=== PATIENT | male | born 1970 | race Caucasian/White ===

== ENCOUNTER 2019-01-24 18:54 | Emergency (ER) | payer OTHER, MEDICAID, SELFPAY ==
--- NOTE | 2019-01-24 19:00 | ED.GENADULT ---
HPI - General Adult General Chief complaint: GI Bleed Stated complaint: VOMITING BLOOD FEELS DISORIENTED Time Seen by Provider: 01/24/19 19:00 Source: patient Mode of arrival: ambulatory Limitations: no limitations History of Present Illness HPI narrative: Patient is a 48-year-old male here for evaluation 2 days of nausea and vomiting and vomiting up blood. He states that he has had ?stomach? issues in the past. He stated that he has been diagnosed with H pylori in the past but has been treated for this. He states that in the past he has had episodes where his stomach starts to hurt and then he vomits several times occasionally with some blood but that seems to resolve his symptoms. States this time it has been going on for the past 2 days which is longer than what has been in the past. He states that it started with bright red blood streaking his vomitus. States that his then since turned into a darker color. No chest pain or shortness of breath. He states he has seen a GI provider in the past but not recently. Not on blood thinners. Denies alcohol use. No change in his stool. He states that during this times his body ?does not process the water that he drinks Related Data Previous Rx's Medication Instructions Recorded esomeprazole magnesium [Nexium 20 mg PO DAILY #30 cap 01/24/19 24HR] Allergies Allergy/AdvReac Type Severity Reaction Status Date / Time NSAIDS (Non-Steroidal AdvReac Verified 01/24/19 19:09 Anti-Inflamma Review of Systems Constitutional Denies fever(s) ENT Ears, Nose, Mouth, and Throat: Reports sore throat Cardiovascular Denies chest pain and Denies dyspnea Respiratory Denies dyspnea Gastrointestinal Gastrointestinal: Reports abdominal pain, Denies melena, Denies hematochezia, Reports coffee ground emesis, Reports nausea and Reports vomiting Genitourinary Denies dysuria Musculoskeletal Denies myalgias and Denies arthralgias Integumentary/Breasts Denies rash Hematologic/Lymphatic Denies easy bleeding and Denies easy bruising Allergic/Immunologic Denies urticaria [facility] Medical History H. pylori infection (Acute) Social History Smoking Status: Never smoker Social History (Reviewed 07/09/19 @ 01:36 by MOI Aparicio Smoking Status: Never smoker Exam Initial Vital Signs Initial Vital Signs: Vital Signs Temperature 98.5 F 01/24/19 19:10 Pulse Rate 104 H 01/24/19 19:10 Respiratory Rate 20 01/24/19 19:10 Blood Pressure 119/91 H 01/24/19 19:10 Pulse Oximetry 98 01/24/19 19:10 Const General: cooperative, comfortable, well developed, well groomed and No acute distress Nutritional Appearance: cachectic Orientation: alert, awake and oriented x3 HENMT Head: normal to inspection and normocephalic Chest Chest: normal inspection of the chest Resp Effort & Inspection: normal respiratory effort Auscultation: clear to auscultation bilaterally Cardio Rate: tachycardic Rhythm: regular rhythm Pulses: radial pulses present GI Inspection: non-distended Palpation: soft, No firm and No tender Skin Lesions: no lesions Rashes: no rashes Neuro General: alert and awake Cognition: normal cognition Speech: speech normal Gait: normal gait Motor: muscle tone normal throughout Extrem General: normal to inspection and capillary refill normal Psych Appearance: grossly normal and well kempt Course Orders Ordered: ED Orders 01/24/19 19:06 XR chest 1V Stat 01/24/19 19:15 Basic Metabolic Panel Stat Complete Blood Count AUTO DIFF Stat Partial Thromboplastin Time Stat Prothrombin Time INR Stat Discontinued Medications Sodium Chloride (Normal Saline 0.9%) 1,000 mls @ 1,000 mls/hr IV BOLUS ONE Stop: 01/24/19 20:05 Last Infusion: 01/24/19 20:37 Dose: 0 mls/hr Admin: 01/24/19 19:30 Dose: 1,000 mls/hr Pantoprazole Sodium (Protonix) 40 mg IV NOW ONE Stop: 01/24/19 19:07 Last Admin: 01/24/19 19:30 Dose: 40 mg Vital Signs - 8 hr 01/24/19 19:10 01/24/19 19:30 01/24/19 20:33 Temperature 98.5 F Pulse Rate 104 H 73 71 Respiratory Rate 20 18 18 Blood Pressure 119/91 H Blood Pressure [Left Arm] 110/74 121/83 Pulse Oximetry 98 97 96 Medical Decision Making Lab Data Lab results reviewed: Yes I reviewed the patient's lab results. Result diagrams: 01/24/19 19:15 01/24/19 19:15 Lab Results 01/24/19 01/24/19 01/24/19 Range/Units 19:15 19:15 19:15 WBC 7.3 (4.5-11.0) X10^3/uL RBC 4.30 L (4.5-5.9) X10^6/uL Hgb 13.8 (13.5-17.5) g/dL Hct 40.3 L (41-53) % MCV 93.7 (80-100) fL MCH 32.1 (26-34) PG MCHC 34.3 (30-36) % RDW 13.0 (11.6-14.8) % Plt Count 172 (150-400) X10^3/uL Neut % (Auto) 65.5 (50-75) % Lymph % (Auto) 22.6 L (25-40) % Gonzales % (Auto) 9.6 (3-14) % Eos % (Auto) 1.7 L (2-4) % Baso % (Auto) 0.6 (0-2) % Neut # (Auto) 4800 (2249-6536) /uL Lymph # (Auto) 1600 (1330-9515) /uL Gonzales # (Auto) 700 (0-900) /uL Eos # (Auto) 100 (0-450) /uL Baso # (Auto) 0 (0-100) /uL PT 11.4 (10.1-12.7) SECONDS INR 1.0 (0.9-1.3) APTT 30 (26.4-36.2) SECONDS Sodium 136 L (137-145) mmol/L Potassium 3.7 (3.4-5.1) mmol/L Chloride 93 L (98-107) mmol/L Carbon Dioxide 31 (22-32) mmol/L BUN 29 H (9-20) mg/dL Creatinine 1.00 (0.66-1.25) mg/dL Estimated GFR > 60.0 (>60) mL/min BUN/Creatinine Ratio 29.0 H (6-22) Glucose 125 H (70-100) mg/dL Calcium 9.0 (8.4-10.2) mg/dL Imaging Data Chest x-ray: Radiologist's impression: [address] [address] XRay Report Signed Patient: Jin Singletary [facility]#: [id number] : 1970Acct:[id number] Age/Sex: 48 / MDate of Service: 01/24/19 Loc: ED Accession Number: [id number] Procedure: XR chest 1V Ordering Provider: Porter Mcrae D.O. PROCEDURE: XR CHEST 1V INDICATIONS: vomit blood eval for free air TECHNIQUE: One view of the chest was acquired. COMPARISON: None. FINDINGS: Surgical changes and devices: None. Lungs and pleura: Lungs are clear. No pleural effusions or pneumothorax. Lungs are hyperexpanded. Mediastinum: Mediastinal contours appear normal. Heart size is normal. Bones and chest wall: No suspicious bony lesions. Overlying soft tissues appear unremarkable. IMPRESSION: Hyperexpansion. No visualized free air. Dictated by: Nikki Portillo M.D. on 01/24/2019 at 19:24 Approved by: Nikki Portillo M.D. on 01/24/2019 at 19:24 [facility] Narrative Medical decision making narrative: Patient is not anemic. Creatinine is unremarkable. No free air into the diaphragm on the chest x-ray. Not hypertensive. Heart rate improved after fluids here in the ER. I do suspect the patient has an ulcer given his history and physical exam. Hold on a CT scan for now. Given his labs and his physical exam in do not feel that he needs admitted for an emergent EGD. Will start the patient on a PPI. He was instructed to contact his primary doctor and also given the phone number for the local surgeons to establish care and have a EGD performed. He is given return precautions and follow-up instructions. He expressed understanding and agreement with plan. Discharge Plan Departure Patient Disposition: Home Clinical Impression: Hematemesis Qualifiers: Nausea presence: with nausea Qualified Code(s): K92.0 - Hematemesis Discharge Date/Time: 01/24/19 20:48 Interventions: ED Discharge Assessment Last Done: 01/24/19 20:47 Instructions: DI for Gastric Ulcer Activity Restrictions/Additional Instructions: I presume that you have a gastric ulcer. Recommend you start taking the medication you were given a prescription for as directed. Tomorrow contact your primary provider for a follow-up. You can also contact the [place] surgeon group at [phone]. Return to the emergency department for any new or worsening symptoms Prescriptions: New esomeprazole magnesium [Nexium 24HR] 20 mg capsule,delayed release(DR/EC) 20 mg PO DAILY Qty: 30 RF: 0
--- NOTE | 2019-01-24 19:06 | DI.RAD.S_ITS ---
PROCEDURE: XR CHEST 1V INDICATIONS: vomit blood eval for free air TECHNIQUE: One view of the chest was acquired. COMPARISON: None. FINDINGS: Surgical changes and devices: None. Lungs and pleura: Lungs are clear. No pleural effusions or pneumothorax. Lungs are hyperexpanded. Mediastinum: Mediastinal contours appear normal. Heart size is normal. Bones and chest wall: No suspicious bony lesions. Overlying soft tissues appear unremarkable. IMPRESSION: Hyperexpansion. No visualized free air. Dictated by: Nikki Portillo M.D. on 01/24/2019 at 19:24 Approved by: Nikki Portillo M.D. on 01/24/2019 at 19:24
[2019-01-24 19:10] VITALS: BP 119/91; PULSE 104; RESP 20; TEMP 36.9; O2SAT 98; BMI 16.8
[2019-01-24 19:30] VITALS: BP 110/74; PULSE 73; RESP 18; O2SAT 97
[2019-01-24] MEDS: SODIUM CHLORIDE 0.9% 1,000 ML 1000 ML IV (19:30)
[2019-01-24] MEDS: PANTOPRAZOLE 40 MG VIAL IV (19:30)
[2019-01-24 19:37] LABS: Add Manual Diff / Slide Review NO; Basophils Absolute Auto 0 /uL (0-100); Basophils Percent Auto 0.6 % (0-2); Eosinophils Absolute Auto 100 /uL (0-450); Eosinophils Percent Auto 1.7 % (2-4); Hematocrit 40.3 % (41-53); Hemoglobin 13.8 g/dL (13.5-17.5); Lymphocytes Absolute Auto 1600 /uL (1100-4500); Lymphocytes Percent Auto 22.6 % (25-40); Mean Corpuscular HGB Conc 34.3 % (30-36); Mean Corpuscular Hemoglobin 32.1 PG (26-34); Mean Corpuscular Volume 93.7 fL (80-100); Monocytes Absolute Auto 700 /uL (0-900); Monocytes Percent Auto 9.6 % (3-14); Neutrophils Absolute Auto 4800 /uL (1500-7000); Neutrophils Percent Auto 65.5 % (50-75); Platelet Count 172 X10^3/uL (150-400); White Blood Cell Count 7.3 X10^3/uL (4.5-11.0)
[2019-01-24 19:38] LABS: Prothrombin Time 11.4 SECONDS (10.1-12.7)
[2019-01-24 19:40] LABS: PTT Partial Thromboplastin Tim 30 SECONDS (26.4-36.2)
[2019-01-24 19:43] LABS: Blood Urea Nitrogen 29 mg/dL (9-20); Carbon Dioxide 31 mmol/L (22-32); Chloride 93 mmol/L (98-107); Estimated Glomerular Filt Rate > 60.0 mL/min (>60); Glucose 125 mg/dL (70-100); HEMOLYSIS 15 (0-50); Potassium 3.7 mmol/L (3.4-5.1); Sodium 136 mmol/L (137-145)
[2019-01-24 20:33] VITALS: BP 121/83; PULSE 71; RESP 18; O2SAT 96
== END 2019-01-24 20:48 | disposition home or self-care (01) ==
PROVIDERS: Emergency Provider Emergency Medicine
DX: K92.0 Hematemesis (principal)
CPT/HCPCS: 36415; 36591; 71045; 80048; 85025; 85610; 85730; 96361; 96374; 99283; 99284; C9113

== ENCOUNTER 2019-01-27 20:42 | Emergency (ER) | payer OTHER, MEDICAID, SELFPAY ==
[2019-01-27 20:49] VITALS: BP 113/65; PULSE 82; RESP 18; TEMP 37.1; O2SAT 98; BMI 17.3
--- NOTE | 2019-01-27 20:51 | ED_ITS ---
HPI - Headache General Chief Complaint: Abdominal Pain Stated Complaint: headache,odd feeling in stomach, vomiting Time Seen by Provider: 01/27/19 20:46 Source: patient Mode of arrival: ambulatory Limitations: no limitations History of Present Illness HPI Narrative: 48-year-old male with 20 year history of peptic ulcer disease and history of H pylori returns to the emergency department at the request of his primary care provider. He was seen and evaluated here a few days ago and had extensive lab evaluation. At the time there was discussion about the potential for advanced imaging to contribute to the diagnosis and provider and patient elected to forego CT at that point in time. He was written a prescription for a proton pump inhibitor and encouraged to follow up. The patient was unable to get the prescription filled for the 1st day but took his 1st dose last night and had approached his primary care provider for help moving forward and he was sent here again for further evaluation. His abdominal pain is largely gone. It is burning and achy in nature when present, like prior episodes. Furthermore the patient states that he routinely develops had occipital headache in the aftermath of his epigastric episodes and he is employed multiple methods for headache control including opioids, traditional migraine therapies and other [id number] options. He states his headache is minor but he is hoping that he can receive some type of ?muscle relaxer? which is within is ever helped him. He denies any injury, blurred vision, trouble speech or other neurologic symptoms. He takes no blood thinners. The patient frequently states he does not want to be here and your does not want advanced imaging or repeat labs. He states he came just because his doctor asked him to come MD Complaint: headache Onset (ago): hour(s) Onset description: gradual Location: occipital Severity: similar to previous episodes Quality: aching and throbbing Relieving factors: nothing Exacerbating factors: none Context: occurred at rest Associated symptoms: none Related Data Previous Rx's Medication Instructions Recorded esomeprazole magnesium [Nexium 20 mg PO DAILY #30 cap 01/24/19 24HR] cephalexin 500 mg PO QID 5 Days #20 cap 01/27/19 cyclobenzaprine 10 mg PO TID PRN #14 tab 01/27/19 sucralfate [Carafate] 1 gram PO QAC #20 tab 01/27/19 Allergies Allergy/AdvReac Type Severity Reaction Status Date / Time NSAIDS (Non-Steroidal AdvReac Verified 01/24/19 19:09 Anti-Inflamma Review of Systems Constitutional Denies chills, Denies fever(s), Reports headache(s), Denies lethargy and Denies weakness Eyes Denies change in vision, Denies eye discharge, Denies irritation and Denies loss of vision ENT Ears, Nose, Mouth, and Throat: Denies change in voice, Reports headache(s), Denies neck pain and Denies sore throat Cardiovascular Denies chest pain, Denies irregular heart rhythm, Denies lightheadedness, Denies palpitations, Denies dyspnea, Denies dyspnea on exertion and Denies orthopnea Respiratory Denies cough, Denies dyspnea, Denies dyspnea on exertion and Denies wheezing Gastrointestinal Gastrointestinal: Reports abdominal pain, Denies change in bowel habits, Denies diarrhea, Denies nausea and Denies vomiting Genitourinary Denies hematuria, Denies flank pain, Denies urinary incontinence and Denies urinary urgency Musculoskeletal Denies neck pain Integumentary/Breasts Denies pruritus, Denies erythema, Denies rash and Denies wounds Neurologic Denies confusion, Reports headache(s), Denies loss of vision and Denies weakness Psychiatric Denies anxiety, Denies confusion, Denies depression, Denies homicidal ideation and Denies suicidal ideation Endocrine Denies palpitations Hematologic/Lymphatic Denies easy bruising Allergic/Immunologic Denies wheezing PFSH Medical History H. pylori infection (Acute) Social History Smoking Status: Never smoker Social History Smoking Status: Never smoker Exam Narrative Exam Narrative: GENERAL: 48-year-old male appears stated age, no obvious or significant distress HEAD: Atraumatic. Normocephalic. No temporal or scalp tenderness. EYES: Pupils equal round and reactive. Extraocular motions intact. No scleral icterus. No injection or drainage. ENT: Nose without bleeding, purulent drainage or septal hematoma. Throat without erythema, tonsillar hypertrophy or exudate. Uvula midline. Airway patent. NECK: Trachea midline. No JVD or lymphadenopathy. Supple, nontender, no meningeal signs. CARDIOVASCULAR: Regular rate and rhythm without murmurs, gallops, or rubs. RESPIRATORY: Clear to auscultation. Breath sounds equal bilaterally. No wheezes, rales, or rhonchi. GASTROINTESTINAL: Abdomen soft, minimal tenderness, nondistended. No hepato- splenomegaly, or palpable masses. No guarding. EXTREMITIES: No clubbing, cyanosis, or edema. No joint tenderness, effusion, or edema noted. BACK: Nontender without deformity or crepitance. No flank tenderness. NEURO: AOx3. SKIN: No rash or erythema. Initial Vital Signs Initial Vital Signs: Vital Signs Temperature 98.7 F 01/27/19 20:49 Pulse Rate 82 01/27/19 20:49 Respiratory Rate 18 01/27/19 20:49 Blood Pressure 113/65 01/27/19 20:49 Pulse Oximetry 98 01/27/19 20:49 Course Orders Ordered: ED Orders 01/27/19 21:59 Urine Culture Stat Urine Microscopic Stat Discontinued Medications Cyclobenzaprine HCl (Flexeril 10 Mg Prepack) 1 bottle MISC SEEINSTR ONE Stop: 01/27/19 21:52 Last Admin: 01/27/19 21:55 Dose: 1 bottle Vital Signs - 8 hr 01/27/19 20:49 Temperature 98.7 F Pulse Rate 82 Respiratory Rate 18 Blood Pressure 113/65 Pulse Oximetry 98 MDM - Headache Lab Data Lab Results 01/27/19 Range/Units 21:59 Urine RBC 1-5/hpf (0-5/HPF) Urine WBC 0-1/hpf (0-5/HPF) Urine Bacteria Occasional (0-1) (None) Granular Casts 0-1/lpf (None) Ur Culture Indicated? Specimen cultured Urine Dip Bedside Urine Glucose Negative Bedside Urine Bilirubin - Negative Bedside Urine Ketone - Negative Urine Specific [place] 1.015 Bedside Urine Occult Blood + Bedside Urine pH 7.0 Bedside Urine Protein +/- 15 Bedside Urine Urobilinogen +/- 1mg Bedside Urine Nitrite - Negative Bedside Urine Leukocytes +/- 15 Esterase MDM Narrative Medical decision making narrative: 48-year-old male with chronic abdominal pain relating to ulcers an H pylori is largely asymptomatic and recently had a very large workup. He refuses any ongoing labs or advanced imaging despite a discussion of risks and benefits. He has only had 1 dose of his proton pump inhibitor and wants to give it more time to work, I then discussed the potential of Carafate to help as well. Finally the patient discusses of the typical pattern of headache in the aftermath of his abdominal pain, exam would suggest low likelihood of subarachnoid hemorrhage, meningitis or other more ominous cause. Patient is had questions answered to his apparent satisfaction and has been given return precautions. Discharge Plan Departure Patient Disposition: Home Clinical Impression: Abdominal pain, acute, epigastric, Acute UTI Discharge Date/Time: 01/27/19 22:02 Interventions: ED Discharge Assessment Last Done: 01/27/19 22:01 Instructions: DI for Urinary Tract Infection (UTI) Activity Restrictions/Additional Instructions: *You have been diagnosed with [acute on chronic epigastric pain, urinary tract infection] *What to do: *Take medications as directed *Follow up with your primary care provider in 2-3 days, call for an appointment. Let them know you were seen in the Emergency Department and that we ask that you be seen in follow up *Return to ER if you should have any new, worsening or concerning symptoms Prescriptions: New cyclobenzaprine 10 mg tablet 10 mg PO TID PRN (Reason: muscle spasm) Qty: 14 RF: 0 sucralfate [Carafate] 1 gram tablet 1 gram PO QAC Qty: 20 RF: 0 cephalexin 500 mg capsule 500 mg PO QID 5 Days Qty: 20 RF: 0 No Action esomeprazole magnesium [Nexium 24HR] 20 mg capsule,delayed release(DR/EC) 20 mg PO DAILY Qty: 30 RF: 0 Referrals: Cuauhtemoc Quiñones MD [Primary Care Provider] -
[2019-01-27] MEDS: CYCLOBENZAPRINE 10 MG PREPACK 1 BOTTLE MISC (21:55)
[2019-01-27 22:14] LABS: Bacteria Urine Occasional (0-1); Granular Casts Urine 0-1/LPF; RBC Urine 1-5/HPF (0-5/HPF); WBC Urine 0-1/HPF (0-5/HPF)
[2019-01-27 22:16] LABS: Culture Indicated Urine Specimen Cultured
== END 2019-01-27 22:02 | disposition home or self-care (01) ==
PROVIDERS: Emergency Provider Emergency Medicine; Family Provider Family Medicine; PCP Family Medicine
DX: R10.13 Epigastric pain (principal); N39.0 Urinary tract infection, site not specified
CPT/HCPCS: 81003; 81015; 87086; 99282; 99283

== ENCOUNTER 2019-03-29 08:45 | Day surgery (SDC) | payer OTHER, MEDICAID, SELFPAY ==
--- NOTE | 2019-03-29 | PATH_ITS ---
[facility] Accession Number: [id number] . 01 Material submitted: . PART A: gastrointestinal site - RANDOM STOMACH PART B: esophagus, E-G Junction - GE JUNCTION . 01 Clinical history: . HEMATEMESIS; ENCOUNTER FOR SCREENING FOR MALIGNANT NEOPLASM . 02 Diagnosis: A. Random Stomach, Biopsies: Gastric body mucosa with no diagnostic abnormality. No evidence of Helicobacter organisms on H/E stain. Negative for intestinal metaplasia, dysplasia or malignancy. . B. Gastroesophageal Junction, Biopsy: Squamocolumnar junctional mucosa with no diagnostic abnormality. Negative for specialized intestinal metaplasia, dysplasia or malignancy. [facility] 03/30/2019 1723 Local . 02 Electronically signed: . Carlos Laughlin MD, PhD, Pathologist NPI- [id number] . 01 Gross description: . Part A: RANDOM STOMACH: Received in formalin are 4 fragment(s) of whiting, soft tissue measuring 0.1 x 0.1 x 0.1 cm to 0.3 x 0.2 x 0.2 cm which is entirely submitted and submitted entirely in 1 cassette(s) Part B: GE JUNCTION: Received in formalin are 3 fragment(s) of whiting, soft tissue measuring 0.1 x 0.1 x 0.1 cm to 0.3 x 0.2 x 0.2 cm which is entirely submitted and submitted entirely in 1 cassette(s) /[facility] 03/29/20192000 Local . 02 Pathologist provided ICD-10: K92.0 . 02 CPT . 893127, [id number] Performed at: 01 [facility] [address], [place], [place] [id number] MD Bala Cardenas MD Phone: [phone] Performed at: 02 [facility] [address] [place] [id number] MD Brigid Sy MD Phone: [phone]
[2019-03-29 09:10] VITALS: BP 114/66; PULSE 65; RESP 16; TEMP 36.2; O2SAT 100; BMI 16.1
[2019-03-29] MEDS: SODIUM CHLORIDE 0.9% 1,000 ML 200 ML IV (09:21)
--- NOTE | 2019-03-29 09:25 | PM.PREOP ---
Pre-operative Note Interval Note History & Physical reviewed/Exam performed by Physician: Yes Changes to H&P: No H&P completed within 30 days and has changed as indicated here:: See note from 03/02 ASA Class (for procedural sedation): I
--- NOTE | 2019-03-29 10:16 | PM.OP.ENDO ---
Operative Date/Time/Diagnoses Date of procedure: 03/29/19 Time of procedure: 10:17 Pre-op diagnosis: Hematemesis. Screening for colon cancer. 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 Nearly healed esophageal ulcer. Colonic diverticulosis.) Procedure & Clinicians Study performed: EGD with cold biopsy. Colonoscopy. Same procedure as scheduled: Yes Indications: Evaluate for cause of hemoptysis. Evaluate colon screening for cancer due to age of 48. Surgeon: Erick Florez Procedure Notes SCOAP/Timeout: Performed Procedure in detail: The patient had topical anesthetic applied to oropharynx. She was placed in left lateral decubitus position and underwent IV sedation directed by the surgeon consisting of fentanyl and Versed. A bite block was inserted and the scope was advanced through it into the esophagus. The esophagus was unremarkable. GE junction was noted at for 44 cm from the incisors. The GE junction was somewhat inflamed and there appeared to be possible Briones's esophagus with tongues of red tissue extending above the GE junction. Additionally, there appeared to be an area that was ulcerated that has essentially nearly healed.. The stomach insufflated well. There were no lesions seen in the body, antrum or at the incisura. The pyloric channel was patent. The duodenum was unremarkable to the 4th part. The scope was brought back into the stomach and retroflexed. The proximal stomach normal in appearance. There was no evidence of a hiatal hernia. Random biopsies were taken of the stomach due to a history of H pylori.. The scope was straightened and brought out through the esophagus again. Biopsies were taken at the GE junction. No other lesions were seen in the esophagus. The scope was removed and the patient tolerated the procedure well. The patient was placed in the left lateral decubitus position and underwent IV sedation directed by the surgeon consisting of fentanyl and Versed. Digital exam was remarkable for an increased sphincter tone. Prostate is mildly enlarged without mass.. The scope was inserted and advanced through the rectum into the sigmoid, descending, transverse, and ascending colon. I noted diverticulosis scattered through the colon with heaviest concentration in the sigmoid.. The cecum was reached identified by the ileocecal valve and the appendiceal opening. The ileocecal valve was successfully cannulated. The terminal ileum was normal in appearance. The scope was gradually brought out. Polyps were found. The scope ultimately was retroflexed in the rectum. The appearance remarkable for internal hemorrhoids without ulceration. The scope was removed and the patient tolerated the procedure well. The prep was very good except for some adhesed here in stool in the right colon. There was a very thin film in places that could not be washed off. Even so I felt the exam was adequate in this area. Scope withdrawal time: 7 minutes Sedation minutes: 34 Findings: Briones's esophagus (Possible. Biopsies taken.), diverticulosis and internal hemorrhoids (Without ulcers) Specimen(s): other (Gastric biopsies. GE junction biopsies.) Complications: none Post-procedure Recommendations: Colonscopy in 10 years and Other recommendation (Pending pathology report) Follow up: as needed Disposition: PACU
[2019-03-29 10:22] VITALS: BP 108/72; PULSE 77; RESP 13; TEMP 36.8; O2SAT 99
[2019-03-29 10:28] VITALS: BP 108/63; PULSE 77; RESP 12; O2SAT 98
[2019-03-29 10:36] VITALS: BP 104/68; PULSE 70; RESP 13; O2SAT 99
[2019-03-29 10:40] VITALS: BP 104/68; PULSE 73; RESP 12; O2SAT 98
== END 2019-03-29 11:00 | disposition home or self-care (01) ==
PROVIDERS: PCP Family Medicine; Visit Provider Specialist
PROC: 0DJ08ZZ Inspection of Upper Intestinal Tract, Via Natural or Artificial Opening Endoscopic (ICD-10-PCS; CPT 43235; principal; 2019-03-29 09:45)
PROC: 0DJD8ZZ Inspection of Lower Intestinal Tract, Via Natural or Artificial Opening Endoscopic (ICD-10-PCS; CPT 45378; 2019-03-29 09:45)
DX: Z12.11 Encounter for screening for malignant neoplasm of colon (principal); K92.0 Hematemesis; K57.30 Diverticulosis of large intestine without perforation or abscess without bleeding; K64.8 Other hemorrhoids
CPT/HCPCS: 43239; 45378; 99152; 99153

== ENCOUNTER 2022-04-25 14:57 | Emergency (ER) | payer OTHER, MEDICAID, SELFPAY ==
[2022-04-25] VITALS (70 sets, daily range): BP systolic 127–196; BP diastolic 65–101; PULSE 45–93; RESP 16–67; TEMP 37.3; O2SAT 95–100; BMI 19.0
--- NOTE | 2022-04-25 15:09 | DI.RAD.S_ITS ---
PROCEDURE: XR KNEE LT 1TO2V INDICATIONS: knee pain after fall TECHNIQUE: 1 views of the knee were acquired. COMPARISON: None. FINDINGS: The knee is flexed. There is a comminuted fracture in the proximal tibia and fibula. The proximal tibial fracture appears involved the tibial plateau. IMPRESSION: Comminuted proximal tibiar and fibular fractures. Dictated by: Lily Lakhani M.D. on 04/25/2022 at 16:42 Approved by: Lily Lakhani M.D. on 04/25/2022 at 16:43
[2022-04-25] MEDS: HYDROMORPHONE 1 MG INJ IV ×2 (15:30→16:35)
--- NOTE | 2022-04-25 15:57 | ED_ITS ---
HPI - Extremity Injury (Lower) <Clem Ellis PA-C - Last Filed: 04/25/22 19:56> General Chief Complaint: Extremity Injury, Lower Stated Complaint: Knee injury Time Seen by Provider: 04/25/22 14:58 Source: patient Mode of arrival: EMS History of Present Illness HPI Narrative: Patient is a 51-year-old male who reports to the emergency room today with complaint of left-sided knee pain that started after he slipped and fell while walking on a trail. States that when he slipped he actually stepped off the trail and went down a narrow embankment and his left foot hit a rock. Say that the rock cause his lower leg to impact into his upper leg. States then he went to [facility] was seen at the walk-in clinic and they had him airlift did have lifted here this emergency room. States he is in extreme pain with the knee being vent now that he can not straighten the knee out. Also states he is in extreme pain at this time. Related Data Home Medications Medication Instructions Recorded Confirmed No Known Home Medications 04/25/22 04/25/22 Allergies Allergy/AdvReac Type Severity Reaction Status Date / Time NSAIDS (Non-Steroidal AdvReac Verified 04/25/22 18:51 Anti-Inflamma Review of Systems <Clem Ellis PA-C - Last Filed: 04/25/22 19:56> Review of Systems Narrative: R.O.S.: General: No fever, chills or fatigue. Cardiovascular: No chest pain or palpitations Respiratory: No S.O.B. HEENT: No congestion, ear pain, rhinorrhea, sore throat or tinnitus Gastrointestinal: No nausea or vomiting : No urinary concerns Skin: No rash or associated abnormalities Musculoskeletal: Left knee pain and swelling Neurological: Awake, alert and in not apparent distress. No Headaches, changes in vision or other related neurological concerns. Patient History <Clem Ellis PA-C - Last Filed: 04/25/22 19:56> Medical History (Updated 04/25/22 @ 19:15 by Clem Ellis PA-C) H. pylori infection Social History household members: none occupational status: employed Smoking Status: Current every day smoker alcohol intake: never substance use type: marijuana Smoking Status: Current every day smoker tobacco type: cigarettes Substance Use Type: marijuana Exam <Clem Ellis PA-C - Last Filed: 04/25/22 19:56> Narrative Exam Narrative: Physical Exam: ? General: normal appearance, well developed, well nourished, alert, and awake. Not in acute distress. ? Head: Normocephalic, no lesions. Chest: Lungs CTAB, no rales, rhonchi or wheezes. ?? Heart: RRR, no murmurs, rubs or gallops. Eyes: PERRLA, EOM's full, conjunctivae clear. ? Neuro: Physiological, no localizing findings, CN3-12 intact. ?? Extremities: Patient's left knee has extreme swelling to the lateral knee area. He is also deformed where there is a shift that appears to be the tibia being shifted laterally. Patient is unable to straighten the knee the knee is in a flexed position. Knee has moderate tenderness to touch and intact sensation to touch. ?? Skin: Normal, no rashes, no lesions noted. ?Unable to perform complete physical exam for patient's complaint of pain. ? PSYCHIATRIC: The mood is good, no blunted affect. Speech is clear. Thought process is linear, thought content is appropriate. The voice is without significant inflection. Gastrointestinal: Soft; NT; ND; Pos BS with Neg. rebound tenderness. No scars or major deformities noted on Visual Inspection. Initial Vital Signs Initial Vital Signs: Vital Signs Temperature 99.1 F 04/25/22 15:03 Pulse Rate 70 04/25/22 15:03 Respiratory Rate 18 04/25/22 15:03 Blood Pressure 147/65 H 04/25/22 15:03 Pulse Oximetry 98 04/25/22 15:03 Oxygen Delivery Method 04/25/22 15:03 <Julio Gibbs DO - Last Filed: 04/25/22 20:31> Initial Vital Signs Initial Vital Signs: Vital Signs Temperature 99.1 F 04/25/22 15:03 Pulse Rate 70 04/25/22 15:03 Respiratory Rate 18 04/25/22 15:03 Blood Pressure 147/65 H 04/25/22 15:03 Pulse Oximetry 98 04/25/22 15:03 Oxygen Delivery Method 04/25/22 15:03 <Porter Mcrae DO - Last Filed: 04/27/22 07:21> Initial Vital Signs Initial Vital Signs: Vital Signs Temperature 99.1 F 04/25/22 15:03 Pulse Rate 70 04/25/22 15:03 Respiratory Rate 18 04/25/22 15:03 Blood Pressure 147/65 H 04/25/22 15:03 Pulse Oximetry 98 04/25/22 15:03 Oxygen Delivery Method 04/25/22 15:03 Course <Clem Ellis PA-C - Last Filed: 04/25/22 19:56> Orders Ordered: Discontinued Medications Hydromorphone HCl (Hydromorphone 1 Mg Inj) 1 mg IV NOW ONE Stop: 04/25/22 15:27 Last Admin: 04/25/22 15:30 Dose: 1 mg Documented By: YAMILE Hydromorphone HCl (Hydromorphone 1 Mg Inj) 1 mg IV NOW ONE Stop: 04/25/22 15:28 Last Admin: 04/25/22 15:46 Dose: Not Given Documented By: YAMILE Hydromorphone HCl (Hydromorphone 1 Mg Inj) 1 mg IV NOW ONE Stop: 04/25/22 16:31 Last Admin: 04/25/22 16:35 Dose: 1 mg Documented By: YAMILE Hydromorphone HCl (Hydromorphone 0.5 Mg Inj) 0.5 mg IV Q2H PRN PRN Reason: Pain, Moderate (4-6) Last Admin: 04/25/22 20:03 Dose: 0.5 mg Documented By: Admin: 04/25/22 18:04 Dose: 0.5 mg Documented By: YAMILE Hydromorphone HCl (Hydromorphone 0.5 Mg Inj) 0.5 mg IV NOW ONE Stop: 04/25/22 20:37 Last Admin: 04/25/22 20:41 Dose: 0.5 mg Documented By: YAMILE Ondansetron HCl (Ondansetron 4 Mg/2 Ml Inj) 4 mg IV NOW ONE Stop: 04/25/22 20:38 Last Admin: 04/25/22 20:40 Dose: 4 mg Documented By: YAMILE Propofol (Propofol 200 Mg/20 Ml Vial) 100 mg IV NOW ONE Stop: 04/25/22 15:57 Last Admin: 04/25/22 16:19 Dose: 70 mg Documented By: YAMILE Vital Signs Vital signs: Vital Signs - 8 hr 04/25/22 15:03 04/25/22 16:15 04/25/22 15:11 Temperature 99.1 F Pulse Rate 70 79 69 Respiratory Rate 18 24 Blood Pressure 147/65 H Pulse Oximetry 98 97 Oxygen Delivery Method Room Air Oxygen Flow Rate 04/25/22 15:15 04/25/22 15:20 04/25/22 15:25 Temperature Pulse Rate 62 68 93 H Respiratory Rate Blood Pressure Pulse Oximetry 97 97 98 Oxygen Delivery Method Oxygen Flow Rate 04/25/22 15:30 04/25/22 15:30 04/25/22 15:34 Temperature Pulse Rate 78 72 Respiratory Rate Blood Pressure 159/83 H Pulse Oximetry 97 97 Oxygen Delivery Method Oxygen Flow Rate 04/25/22 16:00 04/25/22 16:05 04/25/22 16:10 Temperature Pulse Rate 61 59 L Respiratory Rate Blood Pressure 153/80 H Pulse Oximetry 97 99 Oxygen Delivery Method Oxygen Flow Rate 04/25/22 16:15 04/25/22 16:15 04/25/22 16:20 Temperature Pulse Rate 66 63 Respiratory Rate Blood Pressure 127/71 Pulse Oximetry 99 100 Oxygen Delivery Method Nasal Cannula Oxygen Flow Rate 2 04/25/22 16:21 04/25/22 16:21 04/25/22 16:25 Temperature Pulse Rate 63 Respiratory Rate Blood Pressure 153/69 H 155/83 H Pulse Oximetry 100 Oxygen Delivery Method Nasal Cannula Oxygen Flow Rate 2 04/25/22 16:25 04/25/22 16:30 04/25/22 16:31 Temperature Pulse Rate 45 L 54 L 59 L Respiratory Rate Blood Pressure Pulse Oximetry 100 99 99 Oxygen Delivery Method Nasal Cannula Oxygen Flow Rate 2 04/25/22 16:31 04/25/22 16:35 04/25/22 16:35 Temperature Pulse Rate 51 L Respiratory Rate 16 Blood Pressure 156/87 H 170/89 H Pulse Oximetry 98 Oxygen Delivery Method Oxygen Flow Rate 04/25/22 16:38 04/25/22 16:38 04/25/22 16:40 Temperature Pulse Rate 59 L Respiratory Rate 18 Blood Pressure 159/75 H 152/80 H Pulse Oximetry 97 Oxygen Delivery Method Oxygen Flow Rate 04/25/22 16:40 04/25/22 16:45 04/25/22 16:45 Temperature Pulse Rate 60 56 L Respiratory Rate Blood Pressure 169/75 H Pulse Oximetry 97 98 Oxygen Delivery Method Oxygen Flow Rate 04/25/22 16:50 04/25/22 16:50 04/25/22 16:54 Temperature Pulse Rate 80 72 Respiratory Rate 18 Blood Pressure 172/96 H Pulse Oximetry 97 98 Oxygen Delivery Method Oxygen Flow Rate 04/25/22 16:54 04/25/22 16:55 04/25/22 16:56 Temperature Pulse Rate 70 55 L Respiratory Rate Blood Pressure 156/91 H Pulse Oximetry 97 98 Oxygen Delivery Method Oxygen Flow Rate 04/25/22 16:56 04/25/22 17:00 04/25/22 17:00 Temperature Pulse Rate 60 Respiratory Rate 16 Blood Pressure 157/76 H 163/76 H Pulse Oximetry 98 Oxygen Delivery Method Oxygen Flow Rate 04/25/22 17:05 04/25/22 17:10 04/25/22 17:15 Temperature Pulse Rate 55 L 55 L Respiratory Rate Blood Pressure 175/85 H Pulse Oximetry 96 96 Oxygen Delivery Method Oxygen Flow Rate 04/25/22 17:15 04/25/22 17:20 04/25/22 17:25 Temperature Pulse Rate 54 L 54 L 52 L Respiratory Rate Blood Pressure Pulse Oximetry 96 95 95 Oxygen Delivery Method Room Air Oxygen Flow Rate 04/25/22 17:30 04/25/22 17:30 04/25/22 17:35 Temperature Pulse Rate 66 56 L Respiratory Rate Blood Pressure 161/76 H Pulse Oximetry 97 97 Oxygen Delivery Method Room Air Room Air Oxygen Flow Rate 04/25/22 17:40 04/25/22 17:45 04/25/22 17:45 Temperature Pulse Rate 58 L 50 L Respiratory Rate 16 Blood Pressure 144/75 H Pulse Oximetry 95 97 Oxygen Delivery Method Room Air Room Air Oxygen Flow Rate 04/25/22 17:50 04/25/22 17:55 04/25/22 18:00 Temperature Pulse Rate 55 L 65 57 L Respiratory Rate 16 Blood Pressure Pulse Oximetry 98 98 97 Oxygen Delivery Method Room Air Room Air Oxygen Flow Rate 04/25/22 18:01 04/25/22 18:01 04/25/22 18:05 Temperature Pulse Rate 50 L 62 Respiratory Rate 16 Blood Pressure 171/80 H Pulse Oximetry 96 99 Oxygen Delivery Method Room Air Oxygen Flow Rate 04/25/22 18:10 04/25/22 18:15 04/25/22 18:15 Temperature Pulse Rate 54 L 57 L Respiratory Rate Blood Pressure 189/84 H Pulse Oximetry 97 96 Oxygen Delivery Method Room Air Room Air Oxygen Flow Rate 04/25/22 18:20 04/25/22 18:23 04/25/22 18:23 Temperature Pulse Rate 60 63 Respiratory Rate Blood Pressure 162/70 H Pulse Oximetry 96 98 Oxygen Delivery Method Room Air Room Air Oxygen Flow Rate 04/25/22 18:25 04/25/22 18:30 04/25/22 18:30 Temperature Pulse Rate 52 L 55 L Respiratory Rate Blood Pressure 154/72 H Pulse Oximetry 97 96 Oxygen Delivery Method Room Air Oxygen Flow Rate 04/25/22 18:35 04/25/22 18:40 04/25/22 18:45 Temperature Pulse Rate 59 L 58 L 57 L Respiratory Rate Blood Pressure Pulse Oximetry 96 96 97 Oxygen Delivery Method Room Air Room Air Room Air Oxygen Flow Rate 04/25/22 18:50 04/25/22 18:55 04/25/22 19:00 Temperature Pulse Rate 61 60 Respiratory Rate Blood Pressure 196/101 H Pulse Oximetry 97 97 Oxygen Delivery Method Room Air Room Air Oxygen Flow Rate 04/25/22 19:00 04/25/22 19:05 04/25/22 19:10 Temperature Pulse Rate 57 L 54 L 61 Respiratory Rate Blood Pressure Pulse Oximetry 96 96 96 Oxygen Delivery Method Room Air Room Air Room Air Oxygen Flow Rate 04/25/22 19:15 04/25/22 19:20 04/25/22 19:25 Temperature Pulse Rate 53 L 60 61 Respiratory Rate 16 Blood Pressure Pulse Oximetry 97 96 96 Oxygen Delivery Method Room Air Room Air Room Air Oxygen Flow Rate 04/25/22 19:30 04/25/22 19:31 04/25/22 19:31 Temperature Pulse Rate 49 L 56 L Respiratory Rate Blood Pressure 164/82 H Pulse Oximetry 98 97 Oxygen Delivery Method Room Air Room Air Oxygen Flow Rate 04/25/22 19:35 04/25/22 19:40 04/25/22 19:45 Temperature Pulse Rate 60 57 L 59 L Respiratory Rate 16 Blood Pressure Pulse Oximetry 97 97 97 Oxygen Delivery Method Room Air Room Air Room Air Oxygen Flow Rate 04/25/22 19:50 04/25/22 19:55 04/25/22 20:00 Temperature Pulse Rate 60 58 L Respiratory Rate Blood Pressure 166/84 H Pulse Oximetry 97 96 Oxygen Delivery Method Room Air Room Air Oxygen Flow Rate 04/25/22 20:00 04/25/22 20:05 04/25/22 20:10 Temperature Pulse Rate 59 L 65 62 Respiratory Rate 16 16 Blood Pressure Pulse Oximetry 97 99 95 Oxygen Delivery Method Room Air Room Air Room Air Oxygen Flow Rate <Julio Gibbs DO - Last Filed: 04/25/22 20:31> Orders Ordered: Discontinued Medications Hydromorphone HCl (Hydromorphone 1 Mg Inj) 1 mg IV NOW ONE Stop: 04/25/22 15:27 Last Admin: 04/25/22 15:30 Dose: 1 mg Documented By: YAMILE Hydromorphone HCl (Hydromorphone 1 Mg Inj) 1 mg IV NOW ONE Stop: 04/25/22 15:28 Last Admin: 04/25/22 15:46 Dose: Not Given Documented By: YAMILE Hydromorphone HCl (Hydromorphone 1 Mg Inj) 1 mg IV NOW ONE Stop: 04/25/22 16:31 Last Admin: 04/25/22 16:35 Dose: 1 mg Documented By: YAMILE Hydromorphone HCl (Hydromorphone 0.5 Mg Inj) 0.5 mg IV Q2H PRN PRN Reason: Pain, Moderate (4-6) Last Admin: 04/25/22 20:03 Dose: 0.5 mg Documented By: Admin: 04/25/22 18:04 Dose: 0.5 mg Documented By: YAMILE Hydromorphone HCl (Hydromorphone 0.5 Mg Inj) 0.5 mg IV NOW ONE Stop: 04/25/22 20:37 Last Admin: 04/25/22 20:41 Dose: 0.5 mg Documented By: YAMILE Ondansetron HCl (Ondansetron 4 Mg/2 Ml Inj) 4 mg IV NOW ONE Stop: 04/25/22 20:38 Last Admin: 04/25/22 20:40 Dose: 4 mg Documented By: YAMILE Propofol (Propofol 200 Mg/20 Ml Vial) 100 mg IV NOW ONE Stop: 04/25/22 15:57 Last Admin: 04/25/22 16:19 Dose: 70 mg Documented By: YAMILE Vital Signs Vital signs: Vital Signs - 8 hr 04/25/22 15:03 04/25/22 16:15 04/25/22 15:11 Temperature 99.1 F Pulse Rate 70 79 69 Respiratory Rate 18 24 Blood Pressure 147/65 H Pulse Oximetry 98 97 Oxygen Delivery Method Room Air Oxygen Flow Rate 04/25/22 15:15 04/25/22 15:20 04/25/22 15:25 Temperature Pulse Rate 62 68 93 H Respiratory Rate Blood Pressure Pulse Oximetry 97 97 98 Oxygen Delivery Method Oxygen Flow Rate 04/25/22 15:30 04/25/22 15:30 04/25/22 15:34 Temperature Pulse Rate 78 72 Respiratory Rate Blood Pressure 159/83 H Pulse Oximetry 97 97 Oxygen Delivery Method Oxygen Flow Rate 04/25/22 16:00 04/25/22 16:05 04/25/22 16:10 Temperature Pulse Rate 61 59 L Respiratory Rate Blood Pressure 153/80 H Pulse Oximetry 97 99 Oxygen Delivery Method Oxygen Flow Rate 04/25/22 16:15 04/25/22 16:15 04/25/22 16:20 Temperature Pulse Rate 66 63 Respiratory Rate Blood Pressure 127/71 Pulse Oximetry 99 100 Oxygen Delivery Method Nasal Cannula Oxygen Flow Rate 2 04/25/22 16:21 04/25/22 16:21 04/25/22 16:25 Temperature Pulse Rate 63 Respiratory Rate Blood Pressure 153/69 H 155/83 H Pulse Oximetry 100 Oxygen Delivery Method Nasal Cannula Oxygen Flow Rate 2 04/25/22 16:25 04/25/22 16:30 04/25/22 16:31 Temperature Pulse Rate 45 L 54 L 59 L Respiratory Rate Blood Pressure Pulse Oximetry 100 99 99 Oxygen Delivery Method Nasal Cannula Oxygen Flow Rate 2 04/25/22 16:31 04/25/22 16:35 04/25/22 16:35 Temperature Pulse Rate 51 L Respiratory Rate 16 Blood Pressure 156/87 H 170/89 H Pulse Oximetry 98 Oxygen Delivery Method Oxygen Flow Rate 04/25/22 16:38 04/25/22 16:38 04/25/22 16:40 Temperature Pulse Rate 59 L Respiratory Rate 18 Blood Pressure 159/75 H 152/80 H Pulse Oximetry 97 Oxygen Delivery Method Oxygen Flow Rate 04/25/22 16:40 04/25/22 16:45 04/25/22 16:45 Temperature Pulse Rate 60 56 L Respiratory Rate Blood Pressure 169/75 H Pulse Oximetry 97 98 Oxygen Delivery Method Oxygen Flow Rate 04/25/22 16:50 04/25/22 16:50 04/25/22 16:54 Temperature Pulse Rate 80 72 Respiratory Rate 18 Blood Pressure 172/96 H Pulse Oximetry 97 98 Oxygen Delivery Method Oxygen Flow Rate 04/25/22 16:54 04/25/22 16:55 04/25/22 16:56 Temperature Pulse Rate 70 55 L Respiratory Rate Blood Pressure 156/91 H Pulse Oximetry 97 98 Oxygen Delivery Method Oxygen Flow Rate 04/25/22 16:56 04/25/22 17:00 04/25/22 17:00 Temperature Pulse Rate 60 Respiratory Rate 16 Blood Pressure 157/76 H 163/76 H Pulse Oximetry 98 Oxygen Delivery Method Oxygen Flow Rate 04/25/22 17:05 04/25/22 17:10 04/25/22 17:15 Temperature Pulse Rate 55 L 55 L Respiratory Rate Blood Pressure 175/85 H Pulse Oximetry 96 96 Oxygen Delivery Method Oxygen Flow Rate 04/25/22 17:15 04/25/22 17:20 04/25/22 17:25 Temperature Pulse Rate 54 L 54 L 52 L Respiratory Rate Blood Pressure Pulse Oximetry 96 95 95 Oxygen Delivery Method Room Air Oxygen Flow Rate 04/25/22 17:30 04/25/22 17:30 04/25/22 17:35 Temperature Pulse Rate 66 56 L Respiratory Rate Blood Pressure 161/76 H Pulse Oximetry 97 97 Oxygen Delivery Method Room Air Room Air Oxygen Flow Rate 04/25/22 17:40 04/25/22 17:45 04/25/22 17:45 Temperature Pulse Rate 58 L 50 L Respiratory Rate 16 Blood Pressure 144/75 H Pulse Oximetry 95 97 Oxygen Delivery Method Room Air Room Air Oxygen Flow Rate 04/25/22 17:50 04/25/22 17:55 04/25/22 18:00 Temperature Pulse Rate 55 L 65 57 L Respiratory Rate 16 Blood Pressure Pulse Oximetry 98 98 97 Oxygen Delivery Method Room Air Room Air Oxygen Flow Rate 04/25/22 18:01 04/25/22 18:01 04/25/22 18:05 Temperature Pulse Rate 50 L 62 Respiratory Rate 16 Blood Pressure 171/80 H Pulse Oximetry 96 99 Oxygen Delivery Method Room Air Oxygen Flow Rate 04/25/22 18:10 04/25/22 18:15 04/25/22 18:15 Temperature Pulse Rate 54 L 57 L Respiratory Rate Blood Pressure 189/84 H Pulse Oximetry 97 96 Oxygen Delivery Method Room Air Room Air Oxygen Flow Rate 04/25/22 18:20 04/25/22 18:23 04/25/22 18:23 Temperature Pulse Rate 60 63 Respiratory Rate Blood Pressure 162/70 H Pulse Oximetry 96 98 Oxygen Delivery Method Room Air Room Air Oxygen Flow Rate 04/25/22 18:25 04/25/22 18:30 04/25/22 18:30 Temperature Pulse Rate 52 L 55 L Respiratory Rate Blood Pressure 154/72 H Pulse Oximetry 97 96 Oxygen Delivery Method Room Air Oxygen Flow Rate 04/25/22 18:35 04/25/22 18:40 04/25/22 18:45 Temperature Pulse Rate 59 L 58 L 57 L Respiratory Rate Blood Pressure Pulse Oximetry 96 96 97 Oxygen Delivery Method Room Air Room Air Room Air Oxygen Flow Rate 04/25/22 18:50 04/25/22 18:55 04/25/22 19:00 Temperature Pulse Rate 61 60 Respiratory Rate Blood Pressure 196/101 H Pulse Oximetry 97 97 Oxygen Delivery Method Room Air Room Air Oxygen Flow Rate 04/25/22 19:00 04/25/22 19:05 04/25/22 19:10 Temperature Pulse Rate 57 L 54 L 61 Respiratory Rate Blood Pressure Pulse Oximetry 96 96 96 Oxygen Delivery Method Room Air Room Air Room Air Oxygen Flow Rate 04/25/22 19:15 04/25/22 19:20 04/25/22 19:25 Temperature Pulse Rate 53 L 60 61 Respiratory Rate 16 Blood Pressure Pulse Oximetry 97 96 96 Oxygen Delivery Method Room Air Room Air Room Air Oxygen Flow Rate 04/25/22 19:30 04/25/22 19:31 04/25/22 19:31 Temperature Pulse Rate 49 L 56 L Respiratory Rate Blood Pressure 164/82 H Pulse Oximetry 98 97 Oxygen Delivery Method Room Air Room Air Oxygen Flow Rate 04/25/22 19:35 04/25/22 19:40 04/25/22 19:45 Temperature Pulse Rate 60 57 L 59 L Respiratory Rate 16 Blood Pressure Pulse Oximetry 97 97 97 Oxygen Delivery Method Room Air Room Air Room Air Oxygen Flow Rate 04/25/22 19:50 04/25/22 19:55 04/25/22 20:00 Temperature Pulse Rate 60 58 L Respiratory Rate Blood Pressure 166/84 H Pulse Oximetry 97 96 Oxygen Delivery Method Room Air Room Air Oxygen Flow Rate 04/25/22 20:00 04/25/22 20:05 04/25/22 20:10 Temperature Pulse Rate 59 L 65 62 Respiratory Rate 16 16 Blood Pressure Pulse Oximetry 97 99 95 Oxygen Delivery Method Room Air Room Air Room Air Oxygen Flow Rate <Porter Mcrae DO - Last Filed: 04/27/22 07:21> Orders Ordered: Discontinued Medications Hydromorphone HCl (Hydromorphone 1 Mg Inj) 1 mg IV NOW ONE Stop: 04/25/22 15:27 Last Admin: 04/25/22 15:30 Dose: 1 mg Documented By: YAMILE Hydromorphone HCl (Hydromorphone 1 Mg Inj) 1 mg IV NOW ONE Stop: 04/25/22 15:28 Last Admin: 04/25/22 15:46 Dose: Not Given Documented By: YAMILE Hydromorphone HCl (Hydromorphone 1 Mg Inj) 1 mg IV NOW ONE Stop: 04/25/22 16:31 Last Admin: 04/25/22 16:35 Dose: 1 mg Documented By: YAMILE Hydromorphone HCl (Hydromorphone 0.5 Mg Inj) 0.5 mg IV Q2H PRN PRN Reason: Pain, Moderate (4-6) Last Admin: 04/25/22 20:03 Dose: 0.5 mg Documented By: Admin: 04/25/22 18:04 Dose: 0.5 mg Documented By: YAMILE Hydromorphone HCl (Hydromorphone 0.5 Mg Inj) 0.5 mg IV NOW ONE Stop: 04/25/22 20:37 Last Admin: 04/25/22 20:41 Dose: 0.5 mg Documented By: YAMILE Ondansetron HCl (Ondansetron 4 Mg/2 Ml Inj) 4 mg IV NOW ONE Stop: 04/25/22 20:38 Last Admin: 04/25/22 20:40 Dose: 4 mg Documented By: YAMILE Propofol (Propofol 200 Mg/20 Ml Vial) 100 mg IV NOW ONE Stop: 04/25/22 15:57 Last Admin: 04/25/22 16:19 Dose: 70 mg Documented By: YAMILE Vital Signs Vital signs: Vital Signs - 8 hr 04/25/22 15:03 04/25/22 16:15 04/25/22 15:11 Temperature 99.1 F Pulse Rate 70 79 69 Respiratory Rate 18 24 Blood Pressure 147/65 H Pulse Oximetry 98 97 Oxygen Delivery Method Room Air Oxygen Flow Rate 04/25/22 15:15 04/25/22 15:20 04/25/22 15:25 Temperature Pulse Rate 62 68 93 H Respiratory Rate Blood Pressure Pulse Oximetry 97 97 98 Oxygen Delivery Method Oxygen Flow Rate 04/25/22 15:30 04/25/22 15:30 04/25/22 15:34 Temperature Pulse Rate 78 72 Respiratory Rate Blood Pressure 159/83 H Pulse Oximetry 97 97 Oxygen Delivery Method Oxygen Flow Rate 04/25/22 16:00 04/25/22 16:05 04/25/22 16:10 Temperature Pulse Rate 61 59 L Respiratory Rate Blood Pressure 153/80 H Pulse Oximetry 97 99 Oxygen Delivery Method Oxygen Flow Rate 04/25/22 16:15 04/25/22 16:15 04/25/22 16:20 Temperature Pulse Rate 66 63 Respiratory Rate Blood Pressure 127/71 Pulse Oximetry 99 100 Oxygen Delivery Method Nasal Cannula Oxygen Flow Rate 2 04/25/22 16:21 04/25/22 16:21 04/25/22 16:25 Temperature Pulse Rate 63 Respiratory Rate Blood Pressure 153/69 H 155/83 H Pulse Oximetry 100 Oxygen Delivery Method Nasal Cannula Oxygen Flow Rate 2 04/25/22 16:25 04/25/22 16:30 04/25/22 16:31 Temperature Pulse Rate 45 L 54 L 59 L Respiratory Rate Blood Pressure Pulse Oximetry 100 99 99 Oxygen Delivery Method Nasal Cannula Oxygen Flow Rate 2 04/25/22 16:31 04/25/22 16:35 04/25/22 16:35 Temperature Pulse Rate 51 L Respiratory Rate 16 Blood Pressure 156/87 H 170/89 H Pulse Oximetry 98 Oxygen Delivery Method Oxygen Flow Rate 04/25/22 16:38 04/25/22 16:38 04/25/22 16:40 Temperature Pulse Rate 59 L Respiratory Rate 18 Blood Pressure 159/75 H 152/80 H Pulse Oximetry 97 Oxygen Delivery Method Oxygen Flow Rate 04/25/22 16:40 04/25/22 16:45 04/25/22 16:45 Temperature Pulse Rate 60 56 L Respiratory Rate Blood Pressure 169/75 H Pulse Oximetry 97 98 Oxygen Delivery Method Oxygen Flow Rate 04/25/22 16:50 04/25/22 16:50 04/25/22 16:54 Temperature Pulse Rate 80 72 Respiratory Rate 18 Blood Pressure 172/96 H Pulse Oximetry 97 98 Oxygen Delivery Method Oxygen Flow Rate 04/25/22 16:54 04/25/22 16:55 04/25/22 16:56 Temperature Pulse Rate 70 55 L Respiratory Rate Blood Pressure 156/91 H Pulse Oximetry 97 98 Oxygen Delivery Method Oxygen Flow Rate 04/25/22 16:56 04/25/22 17:00 04/25/22 17:00 Temperature Pulse Rate 60 Respiratory Rate 16 Blood Pressure 157/76 H 163/76 H Pulse Oximetry 98 Oxygen Delivery Method Oxygen Flow Rate 04/25/22 17:05 04/25/22 17:10 04/25/22 17:15 Temperature Pulse Rate 55 L 55 L Respiratory Rate Blood Pressure 175/85 H Pulse Oximetry 96 96 Oxygen Delivery Method Oxygen Flow Rate 04/25/22 17:15 04/25/22 17:20 04/25/22 17:25 Temperature Pulse Rate 54 L 54 L 52 L Respiratory Rate Blood Pressure Pulse Oximetry 96 95 95 Oxygen Delivery Method Room Air Oxygen Flow Rate 04/25/22 17:30 04/25/22 17:30 04/25/22 17:35 Temperature Pulse Rate 66 56 L Respiratory Rate Blood Pressure 161/76 H Pulse Oximetry 97 97 Oxygen Delivery Method Room Air Room Air Oxygen Flow Rate 04/25/22 17:40 04/25/22 17:45 04/25/22 17:45 Temperature Pulse Rate 58 L 50 L Respiratory Rate 16 Blood Pressure 144/75 H Pulse Oximetry 95 97 Oxygen Delivery Method Room Air Room Air Oxygen Flow Rate 04/25/22 17:50 04/25/22 17:55 04/25/22 18:00 Temperature Pulse Rate 55 L 65 57 L Respiratory Rate 16 Blood Pressure Pulse Oximetry 98 98 97 Oxygen Delivery Method Room Air Room Air Oxygen Flow Rate 04/25/22 18:01 04/25/22 18:01 04/25/22 18:05 Temperature Pulse Rate 50 L 62 Respiratory Rate 16 Blood Pressure 171/80 H Pulse Oximetry 96 99 Oxygen Delivery Method Room Air Oxygen Flow Rate 04/25/22 18:10 04/25/22 18:15 04/25/22 18:15 Temperature Pulse Rate 54 L 57 L Respiratory Rate Blood Pressure 189/84 H Pulse Oximetry 97 96 Oxygen Delivery Method Room Air Room Air Oxygen Flow Rate 04/25/22 18:20 04/25/22 18:23 04/25/22 18:23 Temperature Pulse Rate 60 63 Respiratory Rate Blood Pressure 162/70 H Pulse Oximetry 96 98 Oxygen Delivery Method Room Air Room Air Oxygen Flow Rate 04/25/22 18:25 04/25/22 18:30 04/25/22 18:30 Temperature Pulse Rate 52 L 55 L Respiratory Rate Blood Pressure 154/72 H Pulse Oximetry 97 96 Oxygen Delivery Method Room Air Oxygen Flow Rate 04/25/22 18:35 04/25/22 18:40 04/25/22 18:45 Temperature Pulse Rate 59 L 58 L 57 L Respiratory Rate Blood Pressure Pulse Oximetry 96 96 97 Oxygen Delivery Method Room Air Room Air Room Air Oxygen Flow Rate 04/25/22 18:50 04/25/22 18:55 04/25/22 19:00 Temperature Pulse Rate 61 60 Respiratory Rate Blood Pressure 196/101 H Pulse Oximetry 97 97 Oxygen Delivery Method Room Air Room Air Oxygen Flow Rate 04/25/22 19:00 04/25/22 19:05 04/25/22 19:10 Temperature Pulse Rate 57 L 54 L 61 Respiratory Rate Blood Pressure Pulse Oximetry 96 96 96 Oxygen Delivery Method Room Air Room Air Room Air Oxygen Flow Rate 04/25/22 19:15 04/25/22 19:20 04/25/22 19:25 Temperature Pulse Rate 53 L 60 61 Respiratory Rate 16 Blood Pressure Pulse Oximetry 97 96 96 Oxygen Delivery Method Room Air Room Air Room Air Oxygen Flow Rate 04/25/22 19:30 04/25/22 19:31 04/25/22 19:31 Temperature Pulse Rate 49 L 56 L Respiratory Rate Blood Pressure 164/82 H Pulse Oximetry 98 97 Oxygen Delivery Method Room Air Room Air Oxygen Flow Rate 04/25/22 19:35 04/25/22 19:40 04/25/22 19:45 Temperature Pulse Rate 60 57 L 59 L Respiratory Rate 16 Blood Pressure Pulse Oximetry 97 97 97 Oxygen Delivery Method Room Air Room Air Room Air Oxygen Flow Rate 04/25/22 19:50 04/25/22 19:55 04/25/22 20:00 Temperature Pulse Rate 60 58 L Respiratory Rate Blood Pressure 166/84 H Pulse Oximetry 97 96 Oxygen Delivery Method Room Air Room Air Oxygen Flow Rate 04/25/22 20:00 04/25/22 20:05 04/25/22 20:10 Temperature Pulse Rate 59 L 65 62 Respiratory Rate 16 16 Blood Pressure Pulse Oximetry 97 99 95 Oxygen Delivery Method Room Air Room Air Room Air Oxygen Flow Rate MDM - Extremity Injury (Lower) <Clem Ellis PA-C - Last Filed: 04/25/22 19:56> Lab Data Labs: Lab Results 04/25/22 Range/Units 18:52 SARS-CoV-2 (PCR) Negative (Negative) Imaging Data Extremity x-ray #1: Radiologist's Impression: [address] [address] XRay Report Signed Patient: Jin Singletary MR#: [id number] : 1970 Acct:[id number] Age/Sex: 51 / M Date of Service: 04/25/22 Loc: ED Accession Number: [id number] ?? Procedure: XR knee LT 1to2V Ordering Provider: Clem Ellis P.A-C PROCEDURE:? XR KNEE LT 1TO2V ? INDICATIONS:? Left knee pain and swelling ? TECHNIQUE:? 3 views of the knee were acquired.? ? COMPARISON:? [facility], CR, XR KNEE LT 1TO2V, 04/25/2022, 15:14. ? FINDINGS:? ? Bones:? There is extensive trauma to the tibial plateau, and also to the proximal fibula to a lesser degree.? The tibial plateau shows extensively comminuted and impacted fractures through the lateral, middle 3rd and medial thirds of the plateau, with depression of the lateral 3rd fracture components to a greater degree than more medially. ?Additionally, there is a comminuted fracture involving the fibular head and neck, moderately impacted.? There is valgus angulation at the knee joint associated w ith the impaction injury discussed above.? The distal femur shows no definite evidence of fracture.? The patella visualized appears intact.? No suspicious bony lesions.? ? Soft tissues:? No joint effusion.? No suspicious soft tissue calcifications.? ? ? IMPRESSION:? Severe trauma to the tibia and fibula has occurred with multiple comminuted fracture planes and also impaction of fracture margins distorting the entire tibial plateau to a greater degree than the proximal fibula. ? ? Dictated by: Hernandez Saucedo M.D. on 04/25/2022 at 16:56 ? ? Approved by: Hernandez Saucedo M.D. on 04/25/2022 at 16:58 ? Extremity x-ray #2: Radiologist's Impression: [place] [address] XRay Report Signed Patient: Jin Singletary MR#: [id number] : 1970 Acct:[id number] Age/Sex: 51 / M Date of Service: 04/25/22 Loc: ED Accession Number: [id number] ?? Procedure: XR knee LT 1to2V Ordering Provider: Clem Ellis P.A-C PROCEDURE:? XR KNEE LT 1TO2V ? INDICATIONS:? knee pain after fall ? TECHNIQUE:? 1 views of the knee were acquired.? ? COMPARISON:? None. ? FINDINGS:? The knee is flexed.? There is a comminuted fracture in the proximal tibia and fibula.? The proximal tibial fracture appears involved the tibial plateau. ? ? IMPRESSION:? Comminuted proximal tibiar and fibular fractures. ? ? Dictated by: Lily Lakhani M.D. on 04/25/2022 at 16:42 ? ? Approved by: Lily Lakhani M.D. on 04/25/2022 at 16:43 ? CT Scan of left knee: Radiologist's Impression: [address] [address] [address] Scan Report Signed Patient: Jin Singletary MR#: [id number] : 1970 Acct:[id number] Age/Sex: 51 / M Date of Service: 04/25/22 Loc: ED Accession Number: [id number] ?? Procedure: CT LE LT wo con Ordering Provider: Clem Ellis P.A-C PROCEDURE:? CT LE LT W CON ? INDICATIONS:? Left knee pain and swelling ? TECHNIQUE:? Noncontrast 1-1.5 mm axial sections acquired from the mid-patella to the proximal tibia, with coronal and sagittal reformats.? ? COMPARISON:? None. ? FINDINGS:? Image quality:? Excellent.? ? There is a comminuted fracture of the proximal tibia with involvement of both the medial and lateral tibial plateaus, impaction and displacement of fracture fragments.? Medial and lateral femoral condyles intact. ? Comminuted fracture of the fibular neck is noted as well with medial displacement of the distal fracture fragment by approximately 1 bone diameter.? Intra-articular involvement noted associated with a large lipohemarthrosis.? No radiopaque foreign bodies ? ? IMPRESSION:? ? Intra-articular comminuted displaced fracture of the tibia. ? Comminuted displaced fracture of the femoral neck ? Large lipohemarthrosis ? Approved by: Umair Mccann M.D. on 04/25/2022 at 16:15? [facility] Narrative Medical decision making narrative: Patient presents to the emergency room complaining of extreme pain and deformity to his left knee after sliding down an embankment and impacting a rock. The walk-in clinic and was eventually airlifted here. Patient now has a knee and a permanent flexed position and in extreme pain. Dilaudid was given to help with the pain and patient was still unable to extend the knee. Discussed with and Dilaudid was ordered for the patient as we will attempt to extend the knee and preparation for further diagnostic studies. Propofol was administered to extend the knee and a knee immobilizer was placed. Patient was then ordered for left knee x-ray and CT scan of the left lower extremity. CT scan and x-ray identified a comminuted fracture of the proximal tibia with involvement of both the medial and lateral tibial plateaus. He has also a comminuted fracture of the fibula neck with medial displacement and a noted large lipohemarthrosis. This provider called ortho and discussed patient with who advised me to forward him copies of the x-rays and await instructions. Was contacted by the transfer center and discussed the patient with Cynthia at [facility]. Cynthia connected me with attending trauma provider at [facility] Dr. Aj Ricks and he agreed to accept the patient at [facility]. The plan is to have the patient transferred to [facility] via ground transportation and ALS. <Julio Gibbs, DO - Last Filed: 04/25/22 20:31> Lab Data Labs: Lab Results 04/25/22 Range/Units 18:52 SARS-CoV-2 (PCR) Negative (Negative) <Porter Mcrae, DO - Last Filed: 04/27/22 07:21> Lab Data Labs: Lab Results 04/25/22 Range/Units 18:52 SARS-CoV-2 (PCR) Negative (Negative) <Julio Gibbs DO - Last Filed: 04/25/22 20:31> Critical Care Time Critical Care Time: Yes Total Critical Care Time: 30 Attestation: The high probability of a clinically significant, sudden or life threatening deterioration of the [MSK] system(s) required my full and direct attention, intervention and personal management. The aggregate critical care time was [30] minutes. This time is in addition to time spent performing reported procedures but includes the following: [x] Data Review and interpretation [x] Patient assessment and monitoring of vital signs [x] Documentation [x] Medication orders and management Discharge Plan Departure Patient Disposition: [facility] Clinical Impression: Tibia fracture, Fibula fracture Prescriptions: No Action No Known Home Medications <Julio Gibbs DO - Last Filed: 04/25/22 20:31> Cosign ED Attending Conner Attestation: I was immediately available in the department for consultation. This documentation has been reviewed and I agree with assessment and plan. Supervised by Julio Gibbs DO <Porter Mcrae DO - Last Filed: 04/27/22 07:21> Cosign ED Attending Conner Attestation: I was immediately available in the department for consultation. This documentation has been reviewed and I agree with assessment and plan. Supervised by DO Dr Clementina Sullivan Co-Sign Statement: I was available for consultation during this patient's emergency department visit. This chart is signed by myself for administrative purposes only. I did not have direct contact with this patient during this visit. They were seen independently by the APC.
[2022-04-25] MEDS: propofoL 200 MG/20 ML VIAL 100 MG IV (16:19)
--- NOTE | 2022-04-25 16:25 | DI.RAD.S_ITS ---
PROCEDURE: XR KNEE LT 1TO2V INDICATIONS: Left knee pain and swelling TECHNIQUE: 3 views of the knee were acquired. COMPARISON: [facility], CR, XR KNEE LT 1TO2V, 04/25/2022, 15:14. FINDINGS: Bones: There is extensive trauma to the tibial plateau, and also to the proximal fibula to a lesser degree. The tibial plateau shows extensively comminuted and impacted fractures through the lateral, middle 3rd and medial thirds of the plateau, with depression of the lateral 3rd fracture components to a greater degree than more medially. Additionally, there is a comminuted fracture involving the fibular head and neck, moderately impacted. There is valgus angulation at the knee joint associated with the impaction injury discussed above. The distal femur shows no definite evidence of fracture. The patella visualized appears intact. No suspicious bony lesions. Soft tissues: No joint effusion. No suspicious soft tissue calcifications. IMPRESSION: Severe trauma to the tibia and fibula has occurred with multiple comminuted fracture planes and also impaction of fracture margins distorting the entire tibial plateau to a greater degree than the proximal fibula. Dictated by: Hernandez Saucedo M.D. on 04/25/2022 at 16:56 Approved by: Hernandez Saucedo M.D. on 04/25/2022 at 16:58
--- NOTE | 2022-04-25 16:25 | DI.CT.S_ITS ---
PROCEDURE: CT LE LT W CON INDICATIONS: Left knee pain and swelling TECHNIQUE: Noncontrast 1-1.5 mm axial sections acquired from the mid-patella to the proximal tibia, with coronal and sagittal reformats. COMPARISON: None. FINDINGS: Image quality: Excellent. There is a comminuted fracture of the proximal tibia with involvement of both the medial and lateral tibial plateaus, impaction and displacement of fracture fragments. Medial and lateral femoral condyles intact. Comminuted fracture of the fibular neck is noted as well with medial displacement of the distal fracture fragment by approximately 1 bone diameter. Intra-articular involvement noted associated with a large lipohemarthrosis. No radiopaque foreign bodies IMPRESSION: Intra-articular comminuted displaced fracture of the tibia. Comminuted displaced fracture of the femoral neck Large lipohemarthrosis Approved by: Umair Mccann M.D. on 04/25/2022 at 16:15
--- NOTE | 2022-04-25 16:31 | RT ---
At bedside for PRS. Patient tolerated well. Released by RN.
[2022-04-25] MEDS: HYDROMORPHONE 0.5 MG INJ IV ×3 (18:04→20:41)
[2022-04-25 19:31] LABS: COVID19 -Nasal RAPID Negative (Negative)
--- NOTE | 2022-04-25 20:14 | PC.NURSE ---
Pt friend Whit has pts cell phone and is taking care of the dog
[2022-04-25] MEDS: ONDANSETRON 4 MG/2 ML INJ IV (20:40)
== END 2022-04-25 20:52 | disposition short-term general hospital (02) ==
PROVIDERS: Emergency Provider Physician Assistant
DX: S82.302A Unspecified fracture of lower end of left tibia, initial encounter for closed fracture (principal); S82.202A Unspecified fracture of shaft of left tibia, initial encounter for closed fracture; W01.0XXA Fall on same level from slipping, tripping and stumbling without subsequent striking against object, initial encounter; Z20.822 Contact with and (suspected) exposure to COVID-19
CPT/HCPCS: 73560; 73700; 87635; 96374; 96375; 96376; 99285; 99291; C9803; J1170; J2405; J2704

== ENCOUNTER → 2023-03-10 10:17 | Outpatient (CLI) | payer OTHER, MEDICAID, SELFPAY ==
[2023-03-10 19:34] LABS: Add Manual Diff / Slide Review NO; Basophils Absolute Auto 0 /uL (0-100); Basophils Percent Auto 0.5 % (0-2); Eosinophils Absolute Auto 100 /uL (0-450); Eosinophils Percent Auto 0.6 % (2-4); Hematocrit 39.5 % (41-53); Hemoglobin 13.7 g/dL (13.5-17.5); Lymphocytes Absolute Auto 2100 /uL (1100-4500); Lymphocytes Percent Auto 22.7 % (25-40); Mean Corpuscular HGB Conc 34.7 % (30-36); Mean Corpuscular Hemoglobin 32.8 PG (26-34); Mean Corpuscular Volume 94.4 fL (80-100); Monocytes Absolute Auto 500 /uL (0-900); Monocytes Percent Auto 5.7 % (3-14); Neutrophils Absolute Auto 6400 /uL (1500-7000); Neutrophils Percent Auto 70.5 % (50-75); Platelet Count 225 X10^3/uL (150-400); Red Blood Cell Count 4.19 X10^6/uL (4.5-5.9); Red Cell Distribution Width 13.6 % (11.6-14.8); White Blood Cell Count 9.1 X10^3/uL (4.5-11.0)
[2023-03-10 19:58] LABS: Alanine Aminotransferase 19 IU/L (<50); Albumin 4.6 g/dL (3.5-5.0); Albumin Globulin Ratio 1.8 (1.0-2.8); Alkaline Phosphatase 85 U/L (38-126); Aspartate Aminotransferase 25 IU/L (17-59); BUN Creatinine Ratio 21.3 (6-22); Bilirubin Total 0.6 mg/dL (0.2-1.3); Blood Urea Nitrogen 16 mg/dL (9-20); Calcium 9.4 mg/dL (8.4-10.2); Carbon Dioxide 25 mmol/L (22-32); Chloride 99 mmol/L (98-107); Cholesterol 278 mg/dL (140-199); Estimated Glomerular Filt Rate > 60 mL/min (>60); Globulin 2.5 g/dL (1.7-4.1); Glucose 105 mg/dL (70-100); HDL Cholesterol 64 mg/dL (40-60); HEMOLYSIS < 15 (0-50); LDL Cholesterol Calculated 199 mg/dL (<100); Potassium 4.2 mmol/L (3.4-5.1); Sodium 135 mmol/L (137-145); Total Protein 7.1 g/dL (6.3-8.2); Triglycerides 75 mg/dL (35-150)
[2023-03-10 20:14] LABS: Prostate Specific Antigen Scrn 1.08 ng/mL (0.1-4.0); TSH w/ Reflex to FT4 0.73 uIU/mL (0.47-4.68)
== END ==
PROVIDERS: PCP Physician Assistant; Visit Provider Physician Assistant
DX: M47.812 Spondylosis without myelopathy or radiculopathy, cervical region (principal); M47.816 Spondylosis without myelopathy or radiculopathy, lumbar region; M62.552 Muscle wasting and atrophy, not elsewhere classified, left thigh; Z12.5 Encounter for screening for malignant neoplasm of prostate; Z13.220 Encounter for screening for lipoid disorders
CPT/HCPCS: 80053; 80061; 84443; 85025; G0103

== ENCOUNTER → 2023-03-19 11:16 | Outpatient (CLI) | payer OTHER, MEDICAID, SELFPAY ==
[2023-03-24 17:45] LABS: Fecal Immunochemical Test Negative (Negative)
== END ==
PROVIDERS: PCP Physician Assistant; Visit Provider Physician Assistant
DX: D64.9 Anemia, unspecified (principal)
CPT/HCPCS: 82274

== ENCOUNTER → 2023-06-24 09:53 | Outpatient (CLI) | payer OTHER, MEDICAID, SELFPAY ==
--- NOTE | 2023-06-24 09:54 | DI.CT.S_ITS ---
PROCEDURE: CT CHEST ABD PEL W CON INDICATIONS: weight loss, intermittent vomiting and episodic abdominal px TECHNIQUE: After the administration of oral and intravenous contrast, axial sections acquired from the supraclavicular neck to the pubic symphysis. Coronal and sagittal reformats were performed. For radiation dose reduction, the following was used: automated exposure control, adjustment of mA and/or kV according to patient size. COMPARISON: None. FINDINGS: Image quality: Excellent. CHEST: Lower Neck: No enlarged lymph nodes. Thyroid: Within normal limits. Axillae: No enlarged lymph nodes. Chest Wall: Unremarkable. Lungs and Airways: A few solid pulmonary nodules, largest measuring 4 millimeters in the posterior right lower lobe (series 5, image 239). Superimposed scattered ground-glass nodules. Moderate centrilobular emphysema. Pleura: A few pleural calcifications. There is a pleural calcification along the posterior right upper lobe, with overlying soft tissue attenuation measuring 2 x 0.6 centimeters (series 5, image 100). Heart: Heart size is normal. No pericardial effusion. Thoracic Vessels: The aorta and pulmonary arteries demonstrate normal size. Mediastinum and Amaris: No enlarged lymph nodes. Esophagus: No wall thickening. No hiatal hernia. ABDOMEN: Liver: No solid mass. Gallbladder: No radiopaque gallstones or wall thickening. Biliary ducts: No biliary dilation. Pancreas: No ductal dilation. Spleen: Size is within normal limits. Adrenal Glands: No adrenal nodules. Kidneys and Ureters: No hydronephrosis. No solid mass. No complex renal cystic lesion which requires follow up. Stomach and Bowel: Normal colonic caliber, without significant wall thickening. Peritoneum: No abnormal intraperitoneal fluid. No free air. Ventral Wall: No hernia. Abdominal Nodes: No retroperitoneal or mesenteric adenopathy by size criteria. Vessels: Aorta and inferior vena cava are normal in size. PELVIS: Pelvic Organs: Unremarkable. Bladder: Unremarkable. Pelvic Nodes: No enlarged lymph nodes. Miscellaneous: No inguinal hernias are seen. Bones: Unremarkable. IMPRESSION: A few solid and ground-glass nodules within the lungs, probably post infectious/inflammatory. Given underlying smoking changes and weight loss, consider follow-up in 3 months with low-dose chest CT to ensure resolution. A few calcified pleural plaques, one of which has a superimposed soft tissue nodularity. Differential includes posttraumatic changes or prior asbestos exposure; overlying soft tissue nodularity could indicate developing mesothelial in the setting of prior asbestosis exposure. This could be followed in 3 months, versus PET-CT now. No intra-abdominal pathology. Dictated by: Tc Gamboa M.D. on 06/24/2023 at 11:32 Approved by: Tc Gamboa M.D. on 06/24/2023 at 11:39
== END ==
PROVIDERS: PCP Physician Assistant; Referring Provider Physician Assistant; Visit Provider Physician Assistant
DX: R91.8 Other nonspecific abnormal finding of lung field (principal); J43.2 Centrilobular emphysema; J92.9 Pleural plaque without asbestos; E83.119 Hemochromatosis, unspecified; R10.9 Unspecified abdominal pain; R63.4 Abnormal weight loss; R11.10 Vomiting, unspecified
CPT/HCPCS: 71260; 74177; Q9967

== ENCOUNTER → 2023-07-02 11:23 | Outpatient (CLI) | payer OTHER, MEDICAID, SELFPAY ==
[2023-07-02 21:14] LABS: Add Manual Diff / Slide Review NO; Basophils Absolute Auto 100 /uL (0-100); Basophils Percent Auto 0.8 % (0-2); Eosinophils Absolute Auto 100 /uL (0-450); Eosinophils Percent Auto 1.6 % (2-4); Hematocrit 40.4 % (41-53); Hemoglobin 13.9 g/dL (13.5-17.5); Lymphocytes Absolute Auto 2500 /uL (1100-4500); Lymphocytes Percent Auto 36.8 % (25-40); Mean Corpuscular HGB Conc 34.4 % (30-36); Mean Corpuscular Hemoglobin 32.8 PG (26-34); Mean Corpuscular Volume 95.3 fL (80-100); Monocytes Absolute Auto 400 /uL (0-900); Monocytes Percent Auto 5.7 % (3-14); Neutrophils Absolute Auto 3700 /uL (1500-7000); Neutrophils Percent Auto 55.1 % (50-75); Platelet Count 240 X10^3/uL (150-400); Red Blood Cell Count 4.24 X10^6/uL (4.5-5.9); Red Cell Distribution Width 13.5 % (11.6-14.8); White Blood Cell Count 6.8 X10^3/uL (4.5-11.0)
[2023-07-02 22:12] LABS: Amylase 68 U/L (30-110); Lipase 111 U/L (23-300)
[2023-07-02 22:47] LABS: Ferritin 58 ng/mL (18-464)
[2023-07-03 19:24] LABS: HEMOLYSIS < 15 (0-50); Iron 138 ug/dL (49-181)
[2023-07-03 19:45] LABS: Free T3, Triiodothyronine Free 3.91 pg/mL (2.77-5.27); Free T4, Direct Thyroxine 1.22 ng/dL (0.78-2.19); Percent Iron Saturation 54 % (20-50); Total Iron Binding Capacity 255 ug/dL (261-462); Transferrin 210 mg/dL (206-381)
[2023-07-07 07:09] LABS: Calcium 9.2 mg/dL (8.7-10.2); Parathyroid Hormone, Intact 44 pg/mL (15-65)
== END ==
PROVIDERS: PCP Physician Assistant; Visit Provider Physician Assistant
DX: E83.119 Hemochromatosis, unspecified (principal); D64.9 Anemia, unspecified; R11.10 Vomiting, unspecified; R79.89 Other specified abnormal findings of blood chemistry
CPT/HCPCS: 82150; 82310; 82728; 83540; 83550; 83690; 83970; 84439; 84481; 85025

== ENCOUNTER 2023-07-06 09:01 | Day surgery (SDC) | payer OTHER, MEDICAID, SELFPAY ==
[2023-07-06] VITALS (11 sets, daily range): BP systolic 105–140; BP diastolic 68–101; PULSE 45–75; RESP 12–17; TEMP 36.3–37.2; O2SAT 97–100; BMI 18.3
[2023-07-06] MEDS: LACTATED RINGERS 1,000 ML 42 ML IV (10:22)
--- NOTE | 2023-07-06 11:21 | P.HP_ITS ---
History of Present Illness History of Present Illness Date Patient Seen: 07/06/23 Time Patient Seen: 11:22 Chief complaint: Colonoscopy Narrative: H/o colon polyps, last scope 5 years ago. Father had colon cancer at age 69. No symptoms. [facility] Medical History Tibia fracture H. pylori infection Surgical History Anesthesia Closed bicondylar fracture of left tibial plateau Family History Father Cancer Social History marital status: unmarried,single household members: none lives independently: Yes occupational status: employed Smoking Status: Current every day smoker alcohol intake: never substance use type: marijuana Meds Home Medications and Allergies Home Medications Medication Instructions Recorded Confirmed Type No Known Home Medications 07/06/23 07/06/23 History Allergies Allergy/AdvReac Type Severity Reaction Status Date / Time NSAIDS (Non-Steroidal AdvReac Verified 06/24/23 16:33 Anti-Inflamma Review of Systems Review of Systems ROS: Yes All systems reviewed with the patient and are negative except as otherwise documented Exam Vital Signs (past 8 hours): - 07/06/23 10:00 Temperature 98 F Pulse Rate 75 Respiratory Rate 17 Blood Pressure 117/68 Pulse Oximetry 100 Oxygen Delivery Method Room Air Oxygen Delivery Method Room Air Const General: cooperative and healthy appearing Nutritional Appearance: thin HENMT Head: normocephalic and atraumatic Eyes General: appearance normal, both eyes and all related structures Neck Neck: trachea midline Resp Effort & Inspection: normal respiratory effort, able to speak in complete sentences and no cough Cardio Rate: regular rate Rhythm: regular rhythm GI Palpation: soft and No tender Skin General: turgor normal Neuro General: patient alert, patient awake and patient oriented x3 Cognition: normal cognition Psych Mental Status: mental status grossly normal Judgment: judgment good Assessment & Plan Assessment & Plan narrative: h/o colon polyps Colonoscopy with anesthesia Time Spent With Patient Time with patient: less than 30 minutes
--- NOTE | 2023-07-06 11:57 | PM.OP.COLON ---
Operative Date/Time/Diagnoses Date of procedure: 07/06/23 Time of procedure: 11:57 Pre-op diagnosis: History of colon polyps Post-op diagnosis: same Procedure & Clinicians Study performed: Colonoscopy with anesthesia Same procedure as scheduled: Yes Indications: History of colon polyps Surgeon: Concha Richmond Procedure Notes Procedure in detail: Preop diagnosis: History of colon polyps Postop diagnosis: Same Operative procedure: Colonoscopy with anesthesia Surgeon: Francine Richmond MD Findings: No polyps identified. Procedure: Patient placed in lateral position. Rectal exam performed showing normal tone no masses. He does have some hemorrhoidal tags. Prostate is hypertrophied but no nodules palpated Scope was inserted into the rectum and advanced to ileocecal valve with minimal difficulty. Insufflation extraction of the scope and the above findings. Retroflex was included in the rectum. Impression: Benign prostatic hypertrophy, no polyps identified on this colonoscopy Plan: Repeat colonoscopy in 5 years Specimen(s): none sent Complications: none Post-procedure Recommendations: Colonoscopy in 5 years Follow up: as needed Disposition: PACU
--- NOTE | 2023-07-06 12:24 | SUR.PHASEI ---
SBAR report at bedside from Dr Garcia. HR ok in the 40's. Transfer to phase II if above 50. Watch for minimum 2 hours prior to DC due to taxi to [facility] [facility].
== END 2023-07-06 13:59 | disposition home or self-care (01) ==
PROVIDERS: PCP Physician Assistant; Referring Provider Surgery; Visit Provider Surgery
PROC: 0DJD8ZZ Inspection of Lower Intestinal Tract, Via Natural or Artificial Opening Endoscopic (ICD-10-PCS; CPT 45378; principal; 2023-07-06 10:45)
DX: Z12.11 Encounter for screening for malignant neoplasm of colon (principal); Z86.010 Personal history of colon polyps; K64.4 Residual hemorrhoidal skin tags; N40.0 Benign prostatic hyperplasia without lower urinary tract symptoms
CPT/HCPCS: 45378; J2704

== ENCOUNTER → 2024-01-26 09:16 | Outpatient (CLI) | payer OTHER, MEDICAID, SELFPAY ==
[2024-01-26 20:07] LABS: HEMOLYSIS < 15 (0-50); Iron 68 ug/dL (49-181)
[2024-01-26 20:19] LABS: Percent Iron Saturation 25 % (20-50); Total Iron Binding Capacity 275 ug/dL (261-462); Transferrin 220 mg/dL (206-381)
== END ==
PROVIDERS: PCP Physician Assistant; Referring Provider Physician Assistant; Visit Provider Physician Assistant
DX: E83.119 Hemochromatosis, unspecified (principal)
CPT/HCPCS: 83540; 83550